=== PATIENT | male | born 1960 | race Caucasian/White ===

== ENCOUNTER → 2021-11-28 | Outpatient (CLI) | payer BC ==
[2021-11-28 09:26] LABS: ALBUMIN 4.2 g/dL (3.5-5.0); POTASSIUM 4.1 mmol/L (3.5-5.1)
[2021-11-28 09:27] LABS: CALCIUM 9.3 mg/dL (8.3-10.5)
[2021-11-28 09:28] LABS: TOTAL PROTEIN 7.2 g/dL (6.4-8.3)
[2021-11-28 09:30] LABS: TOTAL BILIRUBIN 0.9 mg/dL (0.2-1.2)
== END ==
LOC: LAB 07:49
PROVIDERS: Family Medicine
DX: Z12.5 Encounter for screening for malignant neoplasm of prostate (principal); E78.5 Hyperlipidemia, unspecified